=== PATIENT | female | born 1985 ===

== ENCOUNTER 2018-02-07 16:41 | Outpatient (REF) | payer MEDICAID, SELFPAY ==
[2018-02-07 22:34] LABS: Abs Immature Grans 0.03 k/cumm (0.0-0.09); Absolute Basophil Count 0.02 k/cumm (0.0-0.2); Absolute Eosinophil Count 0.13 k/cumm (0.0-0.7); Absolute Lymphocyte Count 3.51 k/cumm (1.2-3.4); Absolute Monocyte Count 0.58 k/cumm (0.11-0.7); Absolute Neutrophil Count 5.96 k/cumm (1.2-6.7); Basophils % 0.2; Eosinophils % 1.3; HCT 36.3 % (36.0-46.0); HGB 11.9 g/dL (12.0-15.5); Immature Grans % 0.3; Lymphocytes % 34.3; Mean Corp. HGB Concentration 32.8 g/dL (32.0-36.0); Mean Corpuscular Hemoglobin 24.8 pg (27.0-33.0); Mean Corpuscular Volume 75.8 fL (80-95); Mean Platelet Volume 10.7 fL (8.0-11.0); Monocytes % 5.7; Neutrophils % 58.2; Platelet Count 299 x1000/uL (130-400); RBC 4.79 m/cumm (4.00-5.20); RBC Distribution Width 15.6 % (11.7-14.6); White Blood Cell Count 10.23 k/cumm (4.4-10.8)
[2018-02-07 22:37] LABS: ALT 25 U/L (12-78); AST 14 U/L (15-37); Albumin 4.1 g/dL (3.4-5.0); Alkaline Phosphatase 63 U/L (46-116); Anion Gap 7.3 mmol/L (3-11); BUN 14 mg/dL (7-18); Bilirubin, Total 0.4 mg/dL (0.2-1.0); CO2 26.7 mmol/L (21.0-32.0); CREATININE 0.82 mg/dL (0.55-1.02); Chloride 103 mmol/L (98-107); Glucose 66 mg/dL (70-100); Lipase 135 U/L (73-393); Potassium 4.6 mmol/L (3.5-5.1); Sodium 137 mmol/L (136-145); Total Protein 7.2 g/dL (6.4-8.2)
== END 2018-02-07 16:42 ==
LOC: NCHCN 16:41
PROVIDERS: PCP Family Medicine; Visit Provider Family Medicine
DX: R10.9 Unspecified abdominal pain (principal)
CPT/HCPCS: 80053; 83690; 85025

== ENCOUNTER 2019-02-21 11:53 | Outpatient (REF) | payer SELFPAY ==
--- NOTE | 2019-02-21 10:36 | PAPFT_PTH ---
PATIENT: BELKYS STOLL [facility] U[facility][id number] AGE/SX: 33/F ROOM: RE02/21/[address]: Aries Perez : 1985 BED: DIS: 02/21/2019 SPEC #: [id number] RECD: 02/22/19 13:01 STATUS: GEORGETTE REQ #: [id number] KAY: 02/21/19 10:[address]: Aries Perez DEPT: [facility] Cytology RECD BY: Ivette Davison Tissues: 1 - CX/ENDOCX FOR PAP SMEARS Procedures: PAP THIN PREP/[facility] Screening HPV DNA PROBE Comments: [id number] (CHLAMYDIA/GC)
[2019-02-21 21:44] LABS: ALT 30 U/L (14-59); AST 16 U/L (15-37); Albumin 4.2 g/dL (3.4-5.0); Alkaline Phosphatase 75 U/L (46-116); BUN 8 mg/dL (7-18); Bilirubin, Total 0.3 mg/dL (0.2-1.0); Calcium 9.6 mg/dL (8.5-10.1); Chloride 104 mmol/L (98-107); Glucose 94 mg/dL (70-100); Potassium 4.4 mmol/L (3.5-5.1); Sodium 141 mmol/L (136-145); Total Protein 7.3 g/dL (6.4-8.2)
[2019-02-25 15:25] LABS: Chlamydia Result Negative; GC Result Negative; Specimen Description SEE COMMENTS
== END 2019-02-21 12:13 ==
LOC: NCHCN 11:53
PROVIDERS: PCP Family Medicine; Visit Provider Family Medicine
DX: Z00.00 Encounter for general adult medical examination without abnormal findings (principal); I10 Essential (primary) hypertension; E66.9 Obesity, unspecified; Z12.4 Encounter for screening for malignant neoplasm of cervix; Z11.51 Encounter for screening for human papillomavirus (HPV)
CPT/HCPCS: 80053; 87491; 87591; 88142; 87624